=== PATIENT | female | born 1985 | race Caucasian/White ===

== ENCOUNTER 2018-04-09 18:57 | Emergency (ER) | payer SELFPAY ==
[2018-04-09] MEDS ORDERED: NA CHLORIDE 0.9% 1,000 ML ONE (19:28)
[2018-04-09 19:55] LABS: Absolute Lymphocytes (CBC) 2.8 K/uL (0.7-4.9); Absolute Monocytes 0.6 K/uL (0.1-1.3); Absolute Neutrophil 6.8 K/uL (1.8-8.0); Basophils % 0.6 % (0-1.3); Hematocrit 41.2 % (36.0-45.0); Lymphocytes % 27.2 % (15.3-44.8); MCH 29.1 pg (27.0-35.0); MCV 84.8 fL (80-100); MPV 9.9 fL (7.6-11.3); Monocytes % 5.5 % (3.3-12.3); RBC Red Blood Cell Count 4.86 M/uL (3.86-4.86)
[2018-04-09 20:06] LABS: Urine Bacteria <20 /HPF (<20); Urine Culture Reflex Order NOT NEEDED; Urine RBC <5 /HPF (NONE SEEN)
[2018-04-09 20:06] LABS: Urine Blood TRACE (NEG); Urine Glucose NEGATIVE (NEG); Urine Protein NEGATIVE (NEG); Urine pH 5.5 (5.0-7.0)
[2018-04-09 20:18] LABS: BUN Blood Urea Nitrogen 12 mg/dL (7-18); Bicarbonate 26 mmol/L (21-32); Glucose Level 103 mg/dL (74-106); HCG, Quantitative < 1 mIU/mL (1-3); Potassium 3.8 mmol/L (3.5-5.1); Sodium Level 140 mmol/L (136-145)
--- NOTE | 2018-04-09 21:08 | RAD REPORT ---
EXAM DESCRIPTION: CT - Head Brain W/Wo Con - 04/09/2018 8:52 pm CLINICAL HISTORY: altered taste;Dizziness;Visual disturbances Headache, drowsiness COMPARISON: No comparisons TECHNIQUE: All CT scans are performed using dose optimization technique as appropriate and may inclu de automated exposure control or mA/KV adjustment according to patient size. FINDINGS: No intracranial hemorrhage, hydrocephalus or extra-axial fluid collection.No areas of brai n edema or evidence of midline shift. The paranasal sinuses and mastoids are clear, except for a small amount of mucus in the sphenoid sinu s. The calvarium is intact. No pathologic contrast enhancement is seen to indicate tumor or infection. IMPRESSION: No acute intracranial abnormality. No pathologic post-contrast enhancement seen. If clinical symptomology persists or progresses, consider followup MR imaging of the brain.
--- NOTE | 2018-04-09 21:17 | EDPHYS ---
Physician Documentation [facility] Name: Melanie Hackett Age: 33 yrs Sex: Female : 1985 Arrival Date: 04/09/2018 Time: 19:01 Bed 28 Private MD: None, None ED Physician Leo Greene HPI: 04/09 20:21 This 33 yrs old Female presents to ER via Ambulatory with complaints of snw Dizziness. 20:21 The patient presents with feeling faint, lightheadedness. Onset: The symptoms/episode snw began/occurred suddenly, and became persistent 3 weeks ago. Context: occurred at work, occurred while the patient was working, just prior to the episode the patient experienced no apparent symptoms. Modifying factors: The symptoms are alleviated by closing eyes, going outside, the symptoms are aggravated by. Associated signs and symptoms: Pertinent positives: nausea, metallic taste in mouth, sinus pressure. Severity of symptoms: At their worst the symptoms were moderate. Patient's baseline: Neuro: alert and fully oriented, Motor: no deficits, Ambulation: walks without assistance, Speech: normal, The patient has a previous history of none. The patient has experienced similar episodes in the past, multiple times, but today's symptoms are worse, happening more rapidly and more frequently. The patient has not recently seen a physician. 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 - Social history:: Smoking status: Patient/guardian denies using tobacco, Patient/guardian denies using alcohol, street drugs, IV drugs. - Ebola Screening: : No symptoms or risks identified at this time. ROS: 20:18 Constitutional: Negative for fever, chills, and weight loss, Eyes: Negative for injury, snw pain, redness, and discharge, Neck: Negative for injury, pain, and swelling, Cardiovascular: Negative for chest pain, palpitations, and edema, Respiratory: Negative for shortness of breath, cough, wheezing, and pleuritic chest pain, Abdomen/GI: Negative for abdominal pain, nausea, vomiting, diarrhea, and constipation, Back: Negative for injury and pain, : Negative for injury, bleeding, discharge, and swelling, MS/Extremity: Negative for injury and deformity, Skin: Negative for injury, rash, and discoloration. 20:18 ENT: Positive for pressure in head, dizziness, metallic taste in mouth. 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 Exam: 20:18 Constitutional: This is a well developed, well nourished patient who is awake, alert, snw and in no acute distress. Head/Face: Normocephalic, atraumatic. Eyes: Pupils equal round and reactive to light, extra-ocular motions intact. Lids and lashes normal. Conjunctiva and sclera are non-icteric and not injected. Cornea within normal limits. Periorbital areas with no swelling, redness, or edema. ENT: Nares patent. No nasal discharge, no septal abnormalities noted. Tympanic membranes are normal and external auditory canals are clear. Oropharynx with no redness, swelling, or masses, exudates, or evidence of obstruction, uvula midline. Mucous membranes moist. Neck: Trachea midline, no thyromegaly or masses palpated, and no cervical lymphadenopathy. Supple, full range of motion without nuchal rigidity, or vertebral point tenderness. No Meningismus. Chest/axilla: Normal chest wall appearance and motion. Nontender with no deformity. No lesions are appreciated. Cardiovascular: Regular rate and rhythm with a normal S1 and S2. No gallops, murmurs, or rubs. Normal PMI, no JVD. No pulse deficits. Respiratory: Lungs have equal breath sounds bilaterally, clear to auscultation and percussion. No rales, rhonchi or wheezes noted. No increased work of breathing, no retractions or nasal flaring. Abdomen/GI: Soft, non-tender, with normal bowel sounds. No distension or tympany. No guarding or rebound. No evidence of tenderness throughout. Back: No spinal tenderness. No costovertebral tenderness. Full range of motion. Skin: Warm, dry with normal turgor. Normal color with no rashes, no lesions, and no evidence of cellulitis. MS/ Extremity: Pulses equal, no cyanosis. Neurovascular intact. Full, normal range of motion. Neuro: Awake and alert, GCS 15, oriented to person, place, time, and situation. Cranial nerves II-XII grossly intact. Motor strength 5/5 in all extremities. Sensory grossly intact. Cerebellar exam normal. Normal gait. Psych: Awake, alert, with orientation to person, place and time. Behavior, mood, and affect are within normal limits. Vital Signs: 19:17 BP 126 / 72; Pulse 101; Resp 19; Temp 98.4; Pulse Ox 100% ; Weight 99.79 kg; Height 5 mg2 ft. 2 in. (157.48 cm); Pain 0/10; 20:11 BP 116 / 77; Pulse 87; Resp 18; Pulse Ox 98% on R/A; mg2 21:34 BP 120 / 70; Pulse 71; Resp 18; Pulse Ox 100% on R/A; Pain 0/10; mg2 19:17 Body Mass Index 40.24 (99.79 kg, 157.48 cm) mg2 MDM: 19:09 Patient medically screened. snw 21:18 Data reviewed: vital signs, nurses notes. Data interpreted: Pulse oximetry: on room air snw is 98 %. Interpretation: acceptable. Counseling: I had a detailed discussion with the patient and/or guardian regarding: the historical points, exam findings, and any diagnostic results supporting the discharge/admit diagnosis, lab results, radiology results, the need for outpatient follow up, to return to the emergency department if symptoms worsen or persist or if there are any questions or concerns that arise at home. Special discussion: Based on the history and exam findings, there is no indication for further emergent testing or inpatient evaluation. I discussed with the patient/guardian the need to see the neurologist for further evaluation of the symptoms. I discussed with the patient/guardian the need to see the primary care provider for further evaluation of the symptoms. 04/09 19:18 Order name: Quantitative Hcg; Complete Time: 20:24 snw 04/09 19:18 Order name: Abo/rh Typing; Complete Time: 20:38 snw 04/09 19:18 Order name: Basic Metabolic Panel; Complete Time: 20:24 snw 04/09 19:18 Order name: CBC with Diff; Complete Time: 20:05 snw 04/09 19:18 Order name: Urine Microscopic Only; Complete Time: 20:14 snw 04/09 19:37 Order name: Urine Dipstick--Ancillary (enter results); Complete Time: 20:14 ms 04/09 19:18 Order name: IV Saline Lock; Complete Time: 19:41 snw 04/09 19:18 Order name: Labs collected and sent; Complete Time: 19:41 snw 04/09 19:18 Order name: NPO; Complete Time: 19:41 snw 04/09 19:37 Order name: Urine --Ancillary (enter results); Complete Time: 20:14 ms 04/09 20:15 Order name: EKG; Complete Time: 20:16 snw 04/09 20:15 Order name: CT Head Brain w/wo Con; Complete Time: 21:15 snw 04/09 21:09 Order name: ABO/RH no charge; Complete Time: 21:09 EDMS 04/09 19:18 Order name: Urine Dipstick-Ancillary (obtain specimen); Complete Time: 19:41 snw 04/09 20:15 Order name: EKG - Nurse/Tech; Complete Time: 20:42 snw Administered Medications: 19:41 Drug: NS 0.9% 1000 ml Route: IV; Rate: 1 bolus; Site: left antecubital; mg2 Disposition: 04/10 07:10 Co-signature as Attending Physician, Leo Greene MD I agree with the assessment and kaz plan of care. Disposition: 04/09/18 21:16 Discharged to Home. Impression: Dizziness and giddiness, Unspecified disturbances of smell and taste. - Condition is Stable. - Discharge Instructions: Dizziness, General Headache Without Cause, Migraine Headache, Rehydration, Adult. - Prescriptions for Antivert 25 mg Oral Tablet - take 1 tablet by ORAL route every 8 hours As needed; 20 tablet. - Medication Reconciliation Form, Thank You Letter, Antibiotic Education, Prescription Opioid Use form. - Follow up: Private Physician; When: 2 - 3 days; Reason: Recheck today's complaints, Continuance of care, Re-evaluation by your physician. Follow up: Emergency Department; When: As needed; Reason: Worsening of condition. Signatures: Dispatcher [employer] Leo Hernandez MD MD cha Therrien, Shelly, TOOLMAKER-C TOOLMAKER-Csnw Gardose, Jadiel, RN RN mg2 Corrections: (The following items were deleted from the chart) 04/09 21:35 21:16 04/09/2018 21:16 Discharged to Home. Impression: Dizziness and giddiness; mg2 Unspecified disturbances of smell and taste. Condition is Stable. Forms are Medication Reconciliation Form, Thank You Letter, Antibiotic Education, Prescription Opioid Use. Follow up: Private Physician; When: 2 - 3 days; Reason: Recheck today's complaints, Continuance of care, Re-evaluation by your physician. Follow up: Emergency Department; When: As needed; Reason: Worsening of condition. snw
--- NOTE | 2018-04-09 21:17 | ER ---
Nurse's Notes [facility] Name: Melanie Hackett Age: 33 yrs Sex: Female : 1985 Arrival Date: 04/09/2018 Time: 19:01 Bed 28 Private MD: None, None Diagnosis: Dizziness and giddiness;Unspecified disturbances of smell and taste Presentation: 04/09 19:12 Presenting complaint: Patient states: she has dizziness for 1 1/2 weeks which is mg2 progressively worsening and burning/metallic taste in her tongue, denies headache, n/v. Transition of care: patient was not received from another setting of care. Onset of symptoms was March 2018. Risk Assessment: Do you want to hurt yourself or someone else? Patient reports no desire to harm self or others. Initial Sepsis Screen: Does the patient meet any 2 criteria? No. Patient's initial sepsis screen is negative. Does the patient have a suspected source of infection? No. Patient's initial sepsis screen is negative. Care prior to arrival: None. 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 - Social history:: Smoking status: Patient/guardian denies using tobacco, Patient/guardian denies using alcohol, street drugs, IV drugs. - Ebola Screening: : No symptoms or risks identified at this time. Screenin:18 Abuse screen: Denies threats or abuse. Denies injuries from another. Nutritional mg2 screening: No deficits noted. Tuberculosis screening: No symptoms or risk factors identified. Fall Risk None identified. Assessment: 19:18 General: Appears in no apparent distress. comfortable, Behavior is calm, cooperative. mg2 Pain: Denies pain. Neuro: Level of Consciousness is awake, alert, obeys commands, Oriented to person, place, time, situation, Reports dizziness, since 1 and 1/2 weeks ago. Cardiovascular: Capillary refill < 3 seconds Patient's skin is warm and dry. Respiratory: Airway is patent Respiratory effort is even, unlabored, Respiratory pattern is regular, symmetrical. GI: No signs and/or symptoms were reported involving the gastrointestinal system. : No signs and/or symptoms were reported regarding the genitourinary system. EENT: No signs and/or symptoms were reported regarding the EENT system. Derm: Skin is intact, Skin is pink, warm \T\ dry. normal. Musculoskeletal: Circulation, motion, and sensation intact. 20:11 Reassessment: Patient appears in no apparent distress at this time. Patient and/or mg2 family updated on plan of care and expected duration. Pain level reassessed. Patient is alert, oriented x 3, equal unlabored respirations, skin warm/dry/pink. 21:34 Reassessment: Patient appears in no apparent distress at this time. mg2 Vital Signs: 19:17 BP 126 / 72; Pulse 101; Resp 19; Temp 98.4; Pulse Ox 100% ; Weight 99.79 kg; Height 5 mg2 ft. 2 in. (157.48 cm); Pain 0/10; 20:11 BP 116 / 77; Pulse 87; Resp 18; Pulse Ox 98% on R/A; mg2 21:34 BP 120 / 70; Pulse 71; Resp 18; Pulse Ox 100% on R/A; Pain 0/10; mg2 19:17 Body Mass Index 40.24 (99.79 kg, 157.48 cm) mg2 ED Course: 19:01 Patient arrived in ED. mr 19:02 None, None is Private Physician. mr 19:05 Jadiel Orellana, LUIS FERNANDO is Primary Nurse. mg2 19:09 Ashley García FNP-C [facility]. snw 19:09 Leo Greene MD is Attending Physician. snw 19:14 Triage completed. mg2 19:18 Arm band placed on. mg2 19:19 Patient has correct armband on for positive identification. mg2 19:41 No provider procedures requiring assistance completed. Inserted saline lock: 20 gauge mg2 in left antecubital area, using aseptic technique. Blood collected. 20:[address] via wheelchair. nj 20:49 CT completed. Patient tolerated procedure well. Patient moved back from CT. nj 20:52 CT Head Brain w/wo Con In Process Unspecified. EDMS 21:34 IV discontinued, intact, bleeding controlled, No redness/swelling at site. Pressure mg2 dressing applied. Administered Medications: 19:41 Drug: NS 0.9% 1000 ml Route: IV; Rate: 1 bolus; Site: left antecubital; mg2 Outcome: 21:16 Discharge ordered by . gera 21:34 Discharged to home ambulatory. mg2 21:34 Condition: stable 21:34 Discharge instructions given to patient, Instructed on discharge instructions, follow up and referral plans. medication usage, Demonstrated understanding of instructions, follow-up care, medications, Prescriptions given X 1. 21:35 Patient left the ED. mg2 Signatures: Dispatcher [employer] EDMS Ashley García, YARN POLISHING MACHINE OPERATOR-C YARN POLISHING MACHINE OPERATOR-Csnw Marcela Harman, Jadiel Tovar RN RN mg2
--- NOTE | 2018-04-11 06:58 | EKG ---
Test Date: 2018-04-09 Test Time: 20:39:54 Scientific Laboratory Supervisor: MG MEASUREMENT RESULTS: Intervals: Rate: 76 MD: 164 QRSD: 86 QT: 386 QTc: 434 [place]: P: 46 MD: 164 QRS: 88 T: 34 INTERPRETIVE STATEMENTS: Normal sinus rhythm Cannot rule out Anterior infarct, age undetermined Abnormal ECG No previous ECG available for comparison Electronically Signed On 04-11-18 06:55:08 CDT by Anand Mack
== END 2018-04-09 21:35 | disposition home or self-care (01) ==
LOC: ER 18:57
DX: R42 Dizziness and giddiness (principal); R43.8 Other disturbances of smell and taste; E03.9 Hypothyroidism, unspecified
CPT/HCPCS: 36415; 80048; 81003; 81015; 81025; 84702; 85025; 86900; 86901; 93005; 99284; J7030